=== PATIENT | female | born 1955 | race Caucasian/White ===

== ENCOUNTER 2016-09-04 11:57 | Emergency (ER) | payer OTHER | END 2016-09-04 15:33 | disposition home or self-care (01) | DX: R07.89 Other chest pain (principal); K21.9 Gastro-esophageal reflux disease without esophagitis ==

== ENCOUNTER 2017-01-09 15:43 | Outpatient (CLI) | payer OTHER ==
--- NOTE | 2017-01-09 21:32 | MRI Report ---
EXAM: RIGHT KNEE MRI WITHOUT CONTRAST EXAM DATE: 01/09/2017 05:04 p.m. CLINICAL HISTORY: 61-year-old female status post acute right knee injury on 12/28/2016. COMPARISON: None. TECHNIQUE: Multiplanar, multisequence T1-weighted and fluid-sensitive sequences of the knee without c ontrast. Other: None. FINDINGS: Bones: There is subcortical edema in the intercondylar region of the tibia. There is subchondral katherine ow edema in the medial aspect of the medial femoral and tibial condyle, and the superior margin of th e patella. Articular Cartilage: There is moderate thinning of the hyaline cartilage of the medial and patellofem oral compartments. There is mild lateral compartment thinning. Medial Meniscus: There is a full-thickness radial tear of the posterior root attachment with medial e xtrusion Lateral Meniscus: The lateral meniscus is intact. Cruciate Ligaments: The anterior and posterior cruciate ligaments are intact. Collateral Ligaments: The medial collateral and lateral collateral ligamentous structures are intact. Tendons: The quadriceps, patellar, semimembranosus, and popliteus tendons are unremarkable. Musculature: No edema or fatty atrophy. Other: There is a moderate-sized joint effusion with a Paz's cyst. There is extensive subcutaneous edema particularly over the anterior aspect of the joint. No loose bodies. The medial and lateral re tinacula are intact. . IMPRESSION: 1. Radial tear of the medial meniscus with medial extrusion. 2. Moderate medial and patellofemoral osteoarthritis. 3. Joint effusion with a Paz's cyst. [facility] MUSCULOSKELETAL RADIOLOGY SECTION Referring Provider Line: [phone] SITE ID: [id number]
== END 2017-01-09 15:44 | disposition home or self-care (01) ==
LOC: DI 15:43
PROVIDERS: ATTEND Family Medicine
DX: S83.241A Other tear of medial meniscus, current injury, right knee, initial encounter (principal); M17.11 Unilateral primary osteoarthritis, right knee; M25.461 Effusion, right knee; M71.21 Synovial cyst of popliteal space [Baker], right knee

== ENCOUNTER 2017-04-05 10:52 | Outpatient (CLI) | payer OTHER | END 2017-04-05 10:53 | disposition critical access hospital (66) | LOC: EMS 10:52 | PROVIDERS: ATTEND Surgery | DX: R06.02 Shortness of breath (principal); R42 Dizziness and giddiness | CPT/HCPCS: A0425; A0429 ==

== ENCOUNTER 2017-04-05 11:06 | Emergency (ER) | payer OTHER ==
--- NOTE | 2017-04-05 11:22 | ED Physician Documentation ---
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 She did not have syncope. Review of Systems Constitutional: reports: Myalgias, Fatigue. denies: Fever Eyes: denies: Decreased vision Ears: denies: Ear pain Nose: reports: Rhinorrhea / runny nose, Congestion Throat: denies: Sore throat Cardiac: denies: Chest pain / pressure, Palpitations Respiratory: reports: Dyspnea, Cough GI: denies: Abdominal Pain, Nausea, Vomiting : denies: Dysuria, Frequency Skin: denies: Rash Musculoskeletal: denies: Neck pain, Back pain, Extremity pain Neurologic: reports: Generalized weakness, Near syncope. denies: Focal weakness , Numbness, Headache, Head injury, LOC PD PAST MEDICAL HISTORY - Past Medical History Past Medical History: No Cardiovascular: None Respiratory: None Endocrine/Autoimmune: None GI: Hiatal hernia - Past Surgical History Past Surgical History: No - Present Medications Home Medications: Ambulatory Orders Medication Instructions Recorded Confirmed Azithromycin [Zithromax] 250 mg PO DAILY #6 tablet 04/05/17 - Allergies Allergies/Adverse Reactions: Allergies Allergy/AdvReac Type Severity Reaction Status Date / Time No Known Drug Allergies Allergy Verified 02/19/14 15:16 - Social History Does the pt smoke?: No Smoking Status: Never smoker Does the pt drink ETOH?: No Does the pt have substance abuse?: No PD ED PE NORMAL - Vitals Vital signs reviewed: Yes (Hypertensive) - General General: No acute distress, Well developed/nourished - HEENT HEENT: Atraumatic, PERRL, EOMI, Other - Neck Neck: Supple, no meningeal sign (There is erythema to the right middle ear and the left is without erythema but with tympanosclerosis.), No bony TTP - Cardiac Cardiac: RRR, No murmur - Respiratory Respiratory: No respiratory distress, Other (Loud reproducible rhonchi in the left base.) - Abdomen Abdomen: Soft, Non tender - Back Back: No CVA TTP, No spinal TTP - Derm Derm: Normal color, Warm and dry, No rash - Extremities Extremities: No deformity, No edema - Neuro Neuro: Alert and oriented X 3, No motor deficit, No sensory deficit, Normal speech - Psych Psych: Normal mood, Normal affect Results - Vitals Vitals: Vital Signs - 24 hr 04/05/17 04/05/17 11:08 11:39 Temperature 36.5 C Heart Rate 72 66 Respiratory 18 20 Rate Blood Pressure 123/82 H 112/62 O2 Saturation 98 98 Oxygen O2 Source Room air - EKG (time done) 1128 Rate: Rate (enter#) (68) Ischemia: Non specific changes Compare to prior EKG: Changed from prior EKG (SPT 09-04-16 the T waves have flattened laterally) Computer interpretation: Agree with computer - Labs Labs: Laboratory Tests 04/05/17 04/05/17 04/05/17 11:15 11:15 11:15 WBC 7.7 RBC 4.66 Hgb 12.3 Hct 37.7 MCV 80.9 L MCH 26.3 L MCHC 32.5 RDW 14.3 Plt Count 257 MPV 7.3 L Neut # 5.7 Lymph # 1.1 L [place] # 0.6 Eos # 0.2 Baso # 0.1 Absolute Nucleated RBC 0.00 Nucleated RBCs 0.0 Sodium 137 Potassium 4.2 Chloride 105 Carbon Dioxide 24 Anion Gap 8.0 BUN 18 Creatinine 0.9 Estimated GFR (MDRD) 64 L Glucose 113 H Calcium 9.1 Total Bilirubin 0.3 AST 28 ALT 16 Alkaline Phosphatase 43 Troponin I < 0.04 Total Protein 6.5 L Albumin 3.5 Globulin 3.0 Albumin/Globulin Ratio 1.2 Lipase 32 Urine Color Urine Clarity Urine pH Ur Specific Bivins Urine Protein Urine Glucose (UA) Urine Ketones Urine Occult Blood Urine Nitrite Urine Bilirubin Urine Urobilinogen Ur Leukocyte Esterase Urine RBC Urine WBC Ur Squamous Epith Cells Urine Bacteria Urine Casts Urine Mucus Ur Microscopic Review Urine Culture Comments 04/05/17 12:00 WBC RBC Hgb Hct MCV MCH MCHC RDW Plt Count MPV Neut # Lymph # Hocking # Eos # Baso # Absolute Nucleated RBC Nucleated RBCs Sodium Potassium Chloride Carbon Dioxide Anion Gap BUN Creatinine Estimated GFR (MDRD) Glucose Calcium Total Bilirubin AST ALT Alkaline Phosphatase Troponin I Total Protein Albumin Globulin Albumin/Globulin Ratio Lipase Urine Color YELLOW Urine Clarity CLEAR Urine pH 6.0 Ur Specific Bivins 1.025 Urine Protein 100 H Urine Glucose (UA) NEGATIVE Urine Ketones NEGATIVE Urine Occult Blood NEGATIVE Urine Nitrite NEGATIVE Urine Bilirubin NEGATIVE Urine Urobilinogen 0.2 (NORMAL) Ur Leukocyte Esterase NEGATIVE Urine RBC 0-5 Urine WBC 0-3 Ur Squamous Epith Cells FEW Squamous Urine Bacteria Few Urine Casts 0-2 Hyaline Casts Urine Mucus Few Strands Ur Microscopic Review INDICATED Urine Culture Comments NOT INDICATED Procedures - IVC sono (time) 1117 Bedside IVC sono: IVC measures (cm) (1.62), Euvolemia PD MEDICAL DECISION MAKING - ED course Complexity details: reviewed old records, reviewed results, re-evaluated patient , considered differential, d/w patient, d/w family ED course: 61-year-old female with a cough for the past 3 weeks has developed near syncope today. She is come to the emergency department and on examination she does appear to have right otitis media she does have rhonchi in the left base and on her plain film she appears to have a hiatal hernia in the left side. She is treated for otitis with dexamethasone and Rocephin here in the emergency department and we will start her on some azithromycin. Departure - Departure Disposition: 01 Home, Self Care Clinical Impression: Near syncope Otitis media Qualifiers: Otitis media type: suppurative Chronicity: acute Laterality: right Recurrence: not specified as recurrent Spontaneous tympanic membrane rupture: without spontaneous rupture Qualified Code(s): H66.001 - Acute suppurative otitis media without spontaneous rupture of ear drum, right ear Condition: Stable Instructions: ED Otitis Media Acute Adult Follow-Up: JULIA GILL [Primary Care Provider] - Prescriptions: Azithromycin [Zithromax] 250 mg PO DAILY #6 tablet
[2017-04-05 11:34] LABS: BASOPHILS # (AUTO) 0.1 10^3/uL (0.0-0.1); BASOPHILS % (AUTO) 0.9 %; EOSINOPHILS # (AUTO) 0.2 10^3/uL (0.0-0.7); EOSINOPHILS % (AUTO) 3.2 %; HCT - HEMATOCRIT 37.7 % (37.0-47.0); HGB - HEMOGLOBIN 12.3 g/dL (12.0-16.0); LYMPHOCYTES # (AUTO) 1.1 10^3/uL (1.5-3.5); LYMPHOCYTES % (AUTO) 13.9 %; MEAN CORPUSCULAR HEMOGLOBIN 26.3 pg (27.0-31.0); MEAN CORPUSCULAR HGB CONC 32.5 g/dL (32.0-36.0); MEAN CORPUSCULAR VOLUME 80.9 fL (81.0-99.0); MEAN PLATELET VOLUME 7.3 fL (7.9-10.8); MONOCYTES # (AUTO) 0.6 10^3/uL (0.0-1.0); MONOCYTES % (AUTO) 7.5 %; NEUTROPHILS # (AUTO) 5.7 10^3/uL (1.5-6.6); NEUTROPHILS % (AUTO) 74.5 %; RED BLOOD COUNT 4.66 10^6/uL (4.20-5.40); RED CELL DISTRIBUTION WIDTH 14.3 % (12.0-15.0); UNCORRECTED WHITE BLOOD COUNT 7.7 x10^3/uL; WHITE BLOOD COUNT 7.7 x10^3/uL (4.8-10.8)
[2017-04-05 11:51] LABS: ALBUMIN/GLOBULIN RATIO 1.2 (1.0-2.2); BILIRUBIN,TOTAL 0.3 mg/dL (0.2-1.0); CALCIUM 9.1 mg/dL (8.5-10.3); CREATININE 0.9 mg/dL (0.4-1.0); POTASSIUM 4.2 mmol/L (3.5-5.0); TOTAL PROTEIN 6.5 g/dL (6.7-8.2)
--- NOTE | 2017-04-05 12:09 | XRAY Preliminary Report ---
Exam: XR Chest 2 View PA/LAT IMPRESSION: 1. No acute abnormality of the chest. 2. Moderate-sized hiatal hernia. [facility] SITE ID: [id number]
--- NOTE | 2017-04-05 12:11 | XRAY Report ---
EXAM: CHEST RADIOGRAPHY EXAM DATE: 04/05/2017 12:01 PM. CLINICAL HISTORY: Left base rhonchi. COMPARISON: 1 view 12/23/2007. TECHNIQUE: 2 views. FINDINGS: Lungs/Pleura: No focal opacities evident. No pleural effusion. No pneumothorax. Normal volumes. Patte rn compatible with focal right hemidiaphragm eventration is without significant change. Mediastinum: Normal heart size. Moderate-sized hiatal hernia demonstrated. Other: None. IMPRESSION: 1. No acute abnormality of the chest. 2. Moderate-sized hiatal hernia. [facility] Referring Provider Line: [phone] SITE ID: [id number]
[2017-04-05 12:15] LABS: BILIRUBIN,URINE NEGATIVE (NEGATIVE)
[2017-04-05 12:16] LABS: UA w/ MICROSCOPIC CHARGE YES
[2017-04-05 12:24] LABS: UR CULTURE IF IND NOT INDICATED; WBC,URINE 0-3 /HPF (0-5)
[2017-04-05] MEDS ORDERED: cefTRIAXone 1 GM in SODIUM CHLORIDE 0.9% MINIBAG 100 ML IV STA (12:28)
[2017-04-05] MEDS ORDERED: DEXAMETHASONE 10 MG/ML VIAL IVP STA (12:28)
[2017-04-05] MEDS ORDERED: cefTRIAXone 1 GM VIAL ONE (12:39)
[2017-04-05] MEDS ORDERED: DEXAMETHASONE 10 MG/ML VIAL ONE (12:39)
[2017-04-05] MEDS ORDERED: SODIUM CHLORIDE FLUSH 0.9% 10 ML SYRINGE IVP ONE (12:43)
[2017-04-05 13:09] VITALS: BP 108/62
== END 2017-04-05 13:18 | disposition home or self-care (01) ==
LOC: EDUNIT# → ED 11:06
DX: R55 Syncope and collapse (principal); H66.001 Acute suppurative otitis media without spontaneous rupture of ear drum, right ear; K44.9 Diaphragmatic hernia without obstruction or gangrene
CPT/HCPCS: 36415; 71020; 80053; 81001; 81003; 83690; 84484; 85025; 87086; 93005; 96365; 96375; 99284

== ENCOUNTER 2018-03-08 13:04 | Observation (INO) | payer OTHER ==
[2018-03-08 13:35] LABS: BASOPHILS % (AUTO) 0.8 %; EOSINOPHILS # (AUTO) 0.1 10^3/uL (0.0-0.7); EOSINOPHILS % (AUTO) 1.5 %; LYMPHOCYTES # (AUTO) 0.7 10^3/uL (1.5-3.5); LYMPHOCYTES % (AUTO) 15.8 %; MEAN CORPUSCULAR HEMOGLOBIN 18.6 pg (27.0-31.0); MEAN CORPUSCULAR HGB CONC 29.4 g/dL (32.0-36.0); MEAN CORPUSCULAR VOLUME 63.5 fL (81.0-99.0); MEAN PLATELET VOLUME 7.1 fL (7.9-10.8); MONOCYTES # (AUTO) 0.2 10^3/uL (0.0-1.0); MONOCYTES % (AUTO) 5.3 %; NEUTROPHILS # (AUTO) 3.5 10^3/uL (1.5-6.6); NEUTROPHILS % (AUTO) 76.6 %; PLT - PLATELET COUNT 223 10^3/uL (130-450); RED BLOOD COUNT 3.06 10^6/uL (4.20-5.40); RED CELL DISTRIBUTION WIDTH 18.8 % (12.0-15.0); WHITE BLOOD COUNT 4.6 x10^3/uL (4.8-10.8)
[2018-03-08 13:38] LABS: HGB - HEMOGLOBIN 5.7 g/dL (12.0-16.0)
--- NOTE | 2018-03-08 13:38 | ED Physician Documentation ---
PD HPI DYSPNEA - Stated complaint Stated Complaint: SOA/DIZZY/NUMBNESS IN LT ARM - Chief complaint Chief Complaint: Cardiac - History obtained from History obtained from: Patient - History of Present Illness Timing - onset: Other (This is a 62-year-old woman with history of unexplained anemia since she was 17. She is never been transfused for it and has been on iron in the past. Up to twice daily but currently taking daily. She is had a colonoscopy in the past, negative for her, never an upper endoscopy. Starting over the last 3 days she has been more short of breath especially with exertion and today she got quite dizzy when she stood up suddenly with left arm tingling but no chest pain.) Review of Systems Constitutional: reports: Fatigue. denies: Fever, Chills Nose: denies: Rhinorrhea / runny nose, Congestion Throat: denies: Sore throat Respiratory: denies: Dyspnea, Cough GI: denies: Abdominal Pain, Nausea, Vomiting, Bloody / black stool PD PAST MEDICAL HISTORY - Past Medical History Cardiovascular: None Respiratory: None Endocrine/Autoimmune: None GI: Hiatal hernia - Past Surgical History Past Surgical History: No - Present Medications Home Medications: Ambulatory Orders Medication Instructions Recorded Confirmed Azithromycin [Zithromax] 250 mg PO DAILY #6 tablet 04/05/17 - Allergies Allergies/Adverse Reactions: Allergies Allergy/AdvReac Type Severity Reaction Status Date / Time No Known Drug Allergies Allergy Verified 02/19/14 15:16 - Living Situation Living Situation: reports: With spouse/s.o. - Social History Does the pt smoke?: No Smoking Status: Never smoker Does the pt drink ETOH?: No Does the pt have substance abuse?: No - Family History Family history: reports: Non contributory PD ED PE NORMAL - Vitals Vital signs reviewed: Yes - General General: Alert and oriented X 3, No acute distress - HEENT HEENT: PERRL, EOMI - Neck Neck: Supple, no meningeal sign, No bony TTP - Cardiac Cardiac: RRR, Other (3 out of 6 rapidly decrescendo systolic murmur) - Respiratory Respiratory: No respiratory distress, Clear bilaterally - Abdomen Abdomen: Normal bowel sounds, Soft, Non tender - Rectal Rectal: Other (v. dark stool and v guaiac positive) - Back Back: No CVA TTP, No spinal TTP - Derm Derm: Normal color, Warm and dry - Extremities Extremities: Other (He has significant bilateral pitting pedal edema which she says is neck and unchanged from her usual.) - Neuro Neuro: Alert and oriented X 3, Normal speech - Psych Psych: Normal mood, Normal affect Results - Vitals Vitals: Vital Signs - 24 hr 03/08/18 13:11 Temperature 36.6 C Heart Rate 73 Respiratory 18 Rate Blood Pressure 115/83 H O2 Saturation 100 Oxygen O2 Source Room air - EKG (time done) 1314 Rate: Rate (enter#) (70) Rhythm: NSR Issue: Normal Intervals: Normal NH QRS: Normal Ischemia: Normal ST segments Computer interpretation: Agree with computer - Labs Labs: Laboratory Tests 03/08/18 03/08/18 03/08/18 13:20 13:20 13:20 WBC 4.6 L RBC 3.06 L Hgb 5.7 L* Hct 19.4 L* MCV 63.5 L MCH 18.6 L MCHC 29.4 L RDW 18.8 H Plt Count 223 MPV 7.1 L Sodium 133 L Potassium 3.3 L Chloride 101 Carbon Dioxide 23 Anion Gap 9.0 BUN 13 Creatinine 0.8 Estimated GFR (MDRD) 73 L Glucose 147 H Calcium 8.6 Total Bilirubin 0.9 AST 23 ALT 14 Alkaline Phosphatase 44 Troponin I < 0.04 Total Protein 6.5 L Albumin 3.6 Globulin 2.9 Albumin/Globulin Ratio 1.2 Lipase 44 PD MEDICAL DECISION MAKING - ED course ED course: 62-year-old woman with chronic anemia, she had a colonoscopy about 6 years ago without relevant findings. Never an upper endoscopy. She is noted be very anemic today related to the symptoms of presyncope and shortness of breath problem. Also has a new murmur which is likely a flow murmur. Echo ordered. Hemoglobin only 5.7 and blood was readied and guaiac very positive on rectal exam. Spoke with the on-call surgeon, Dr. Mesa who will consult and defers to medicine for admission and the hospitalist was called at 2:18 PM. - Sepsis Event Vital Signs: Vital Signs - 24 hr 03/08/18 13:11 Temperature 36.6 C Heart Rate 73 Respiratory 18 Rate Blood Pressure 115/83 H O2 Saturation 100 Oxygen O2 Source Room air Departure - Departure Disposition: [facility] DC/Xfer Clinical Impression: Gastrointestinal hemorrhage Qualifiers: GI bleed type/associated pathology: melena Qualified Code(s): K92.1 - Melena Condition: Serious
[2018-03-08 13:43] LABS: ALBUMIN 3.6 g/dL (3.2-5.5); ALBUMIN/GLOBULIN RATIO 1.2 (1.0-2.2); BILIRUBIN,TOTAL 0.9 mg/dL (0.2-1.0); CALCIUM 8.6 mg/dL (8.5-10.3); CREATININE 0.8 mg/dL (0.4-1.0); TOTAL PROTEIN 6.5 g/dL (6.7-8.2)
--- NOTE | 2018-03-08 14:12 | XRAY Report ---
Procedure Date: 03/08/2018 Accession Number: [id number] / [id number] Procedure: XR - Chest 1 View X-Ray CPT Code: 24191 FULL RESULT: EXAM: CHEST RADIOGRAPHY EXAM DATE: 03/08/2018 01:53 PM. CLINICAL HISTORY: Dyspnea new murmur. COMPARISON: CHEST 2 VIEW PA/LAT 04/05/2017. TECHNIQUE: 1 view. FINDINGS: Lungs/Pleura: No consolidative process or pulmonary edema. Mediastinum: There is a moderate-sized round retrocardiac density containing gas consistent with a hiatal hernia. There is eventration of the mid right hemidiaphragm. The contour of the AP window or main pulmonary artery appears enlarged. Other: None. IMPRESSION: 1. No acute airspace disease. 2. Prominent contour of main pulmonary artery which could reflect underlying valve or cardiac disease. 3. Moderate-sized hiatal hernia. [facility]
[2018-03-08] MEDS ORDERED: PANTOPRAZOLE 40 MG VIAL IVP STA (14:18)
--- NOTE | 2018-03-08 14:38 | HISTORY & PHYSICAL EXAMINATION ---
Chief Complaint - Chief Complaint Chief Complaint: dizziness, shortness of breath History of Present Illness - Admitted From Admitted From:: ED - History Obtained From Records Reviewed: yes History obtained from: chart review, patient Exam Limitations: none - History of Present Illness HPI Comment/Other: Roselia Castro is a 62-year old female with a past medical history of morbid obesity, chronic anemia, pneumonia, seasonal allergies, chronic BLE edema, and a right meniscus tear. The patient came to the ED today with a primary complaint of dizziness, and shortness of breath that began 3 days ago. Today these symptoms accompanied left arm numbness and tingling, so this made her come in. Her , Zafar is at the bedside and supportive. She denies other symptoms such as chest pain, fevers, chills, swollen glands, runny nose, diaphoresis, headaches, nausea, vomiting, changes in bowels, changes in diet, recent weight loss, or a new cough. Labs show a profound decrease in her H/H at 5.7/19.4, a low MCV at 63.5, normal platelets, low sodium at 133, low potassium at 3.3, elevated glucose at 147, negative troponin, low total protein at 6.5, a reduced GFR of 73, and no other lab abnormalities. She is found to be afebrile, with normal VS. She is found to have a heart murmur upon exam, so an echocardiogram was ordered. She is being transfused 2 units of PRBCs. There is no evidence of bleeding, found to have no abnormal bleeding, chronic wounds or petechiae. General surgery, Dr. Avery was contacted in the ED who has seen the patient's in the past, who suggests an admission for blood transfusion and further GI work up to rule out GI as the cause of this anemia. She will be observation with an expected one night of stay. History - Past Medical History Cardiovascular: reports: None Respiratory: reports: Pneumonia Neuro: reports: None Endocrine/Autoimmune: reports: None GI: reports: GERD, Hiatal hernia [employer]: reports: None : reports: Nocturia, Frequency HEENT: reports: Chronic sinusitis, Other (seasonal allergies) Psych: reports: None Musculoskeletal: reports: Other (Right knee meniscus tear, will need surgery some day) Derm: reports: Rosacea MRSA Hx?: No - Past Surgical History General: reports: Colonoscopy (~5 years ago) - Family & Social History Family History: Mother: , Father: , Sister: Alive and Well, Brother: Alive and Well Family History Comment/Other: The patient's parents are ; mother from pancreatic CA in her 70's, father of legionnaire's disease in his 50' s. She has 2 brothers and 2 sisters who are alive and well and the only known disease is one brother with diverticulitis and status post partial bowel ressection. Living arrangement: At home Living Situation: With spouse/s.o. Social History Notes: The patient lives independently in [place] with her of 40 years, Zafar, who is retired. 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 She stays very active. She has 2 grown boys, and 5 grandchildren. She denies illicit drug use, alcohol use , or tobacco use. She wishes to be a FULL Code. - Substance History Use: Uses substance without health or social issues: NONE Abuse: Recurrent use of substance despite neg consequences: NONE Dependence: Experiences withdrawal or developed tolerances: NONE - POLST Patient has POLST: No POLST Status: Full Code Meds/Allgy - Home Medications Home Medications: Ambulatory Orders Medication Instructions Recorded Confirmed Doxycycline Hyclate 50 mg PO DAILY PRN 03/08/18 03/08/18 Ferrous Sulfate 325 mg PO DAILY 03/08/18 03/08/18 - Allergies Allergies/Adverse Reactions: Allergies Allergy/AdvReac Type Severity Reaction Status Date / Time No Known Drug Allergies Allergy Verified 02/19/14 15:16 Review of Systems - Constitutional Constitutional: reports: Fatigue, Weakness - Ears, Nose & Throat Ears, Nose & Throat: reports: Postnasal drainage - Cardiovascular Cariovascular: reports: Edema, Lightheadedness, Exertional dyspnea, Decr. exercise tolerance, Orthopnea - Respiratory Respiratory: reports: Orthopnea, SOB at rest, SOB with exertion - Gastrointestinal Gastrointestinal: reports: Abdominal distention, Reflux/heartburn - Genitourinary Genitourinary: reports: Frequency, Nocturia - Musculoskeletal Musculoskeletal: reports: Joint swelling - Integumentary Integumentary: reports: Dryness - Neurological Neurological: reports: Dizziness, Numbness (left arm) - Hematologic/Lymphatic Hematologic/Lymphatic: reports: Anemia - All Other Systems All Other Systems: reports: Reviewed and negative Exam - Vital Signs Reviewed Vital Signs: Yes Vital Signs: Vital Signs x48h Temp Pulse Resp BP Pulse Ox 03/08/18 14:15 78 20 144/57 H 100 03/08/18 13:11 36.6 C 73 18 115/83 H 100 - Physical Exam General Appearance: positive: No acute distress, Alert Eyes Bilateral: positive: Normal inspection, PERRL ENT: positive: ENT inspection nml, Pharynx nml, No signs of dehydration Neck: positive: Nml inspection, Thyroid nml, No JVD, Trachea midline Respiratory: positive: Chest non-tender, No respiratory distress, Breath sounds nml Cardiovascular: positive: Regular rate & rhythm, Systolic murmur, Decreased pulse(s) Peripheral Pulses: positive: 1+ Abdomen: positive: Non-tender, Nml bowel sounds, Other (obese, soft) Back: positive: Nml inspection Skin: positive: No rash, Warm, Dry, Other (pale) Extremities: positive: Non-tender, Full ROM, Pedal edema (chronic BLE edema, pitting.), Joint swelling Neurologic/Psychiatric: positive: Oriented x3, CN's nml (2-12), Motor nml, Sensation nml, Mood/affect nml Reflexes: Bicep (R): 3+, Bicep (L): 3+, Ankle (R): 3+, Ankle (L): 3+ Conclusion/Plan - Problem List (1) Severe anemia Conclusion/Plan: Upon arrival to the ED the patient is found to have a hemoglobin of 5.7 and a hematocrit of 19.4. She also complained of dizziness, shortness of breath and left arm tingling. She will be initially transfused with 2 units, and an additional 2 units on hold. General surgery was consulted who will likely have her begin the bowel prep with colonoscopy in the AM. Plan: continue blood transfusion, and watch for signs of worsening. (2) Gastroesophageal reflux disease Conclusion/Plan: The patient believes that she has a history of a hiatal hernia, and admits to almost daily GERD symptoms of which she takes over the counter TUMS if needed. Plan: Continue to monitor and start a PPI. Qualifiers: Esophagitis presence: esophagitis presence not specified Qualified Code(s) : K21.9 - Gastro-esophageal reflux disease without esophagitis (3) Murmur, cardiac Conclusion/Plan: The patient denies a prior history of a heart murmur, and this was first heard in the ED. An echocardiogram was ordered. This could be caused by low intra- vascular fluid, or pathologic. Plan: Continue to replace blood, and await echo results. (4) Morbid obesity Conclusion/Plan: The patient admits to a non-sedentary life style, so this obesity is likely due to excess calories. She denies a history of DM. Her BMI is 42.2 upon admission. Plan: Encourage weight management that will need to be ordered by her PCP upon discharge. - Lab Results Lab results reviewed: Yes Fish Bones: 03/09/18 05:46 03/09/18 05:46 - Diagnostic Imaging Results Diagnostic Imaging Results: positive: Prelim report reviewed, Final report reviewed - EKG Results EKG Interpreted Independently: Yes EKG Comparison: No prior EKG Core Measures - Anticipated LOS I expect patient to be DC'd or transferred within 96 hours.: Yes - DVT/VTE - Prophylaxis VTE/DVT Device ordered at admit?: Yes VTE/DVT Prophylaxis med ordered at admit?: Yes Not Ordered - Medical Reason: Contraindicated - Stroke - Rehab Assessment Rehab services assessment to be ordered?: No Not Ordered - Medical Reason: Contraindicated - AMI - Statin at Admit Aspirin Prescribed on Admit: No Not Ordered - Medical Reason: Contraindicated
[2018-03-08 16:45] LABS: PLATELET ESTIMATE, MANUAL NORMAL (130-450,000) (NORMAL); PLATELET MORPHOLOGY NORMAL APPEARANCE (NORMAL)
[2018-03-08] MEDS: SODIUM CHLORIDE FLUSH 0.9% 10 ML SYRINGE IVP SCH (17:12)
[2018-03-08 20:05] LABS: % IRON SATURATION 4 % (20-50); IRON 17 ug/dL (28-170); TOTAL IRON BINDING CAPACITY 434 ug/dL (250-450); TRANSFERRIN 310 mg/dL (192-382)
--- NOTE | 2018-03-09 00:45 | CONSULTATION NOTE ---
Referring Provider Name of Referring Provider:: Dr. Bright Daniel Consult Date: 03/08/18 Chief Complaint - Chief Complaint Chief Complaint: Acute on chronic anemia History of Present Illness - Admitted From Admitted From:: [facility] ED - History Obtained From Records Reviewed: Yes History obtained from: Patient and Dr. Daniel Exam Limitations: None - History of Present Illness HPI Comment/Other: This very pleasant 62-year-old female is evaluated in room 7 at [facility]'s emergency department at the request of Dr. Daniel. Dr. Daniel called me for an acute exacerbation of the patient's long-standing anemia. The patient states that she has been anemic ever since the age of 17. 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 She states that this is a result of being seen at [facility]. Additionally, and importantly, her last colonoscopy was approximately 5 years ago and was reportedly normal. She has been on long-standing iron and states that her stool was dark. She did not notice any difference. When she felt lightheaded is when she noted a problem. Of note, I know her as I have operated on him. 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 While I was talking to her she was feeling phone calls trying to get coverage at the [employer]. She denies any hematemesis or hematuria. Despite which he stated to Dr. Daniel , she has been taking chronic nonsteroidal anti-inflammatory drugs (Advil) for [id number] irritation in her knee. She has been told that she is too young to have a knee replacement yet. 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 She has 2 brothers and 2 sisters who are alive and well and the only known disease is one brother with diverticulitis and status post partial bowel ressection. Living arrangement: At home Living Situation: With spouse/s.o. Social History Notes: The patient lives independently in [place] with her of 40 years, Zafar, who is retired. 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 She stays very active. She has 2 grown boys, and 5 grandchildren. She denies illicit drug use, alcohol use , or tobacco use. She wishes to be a FULL Code. - Substance History Use: Uses substance without health or social issues: NONE Abuse: Recurrent use of substance despite neg consequences: NONE Dependence: Experiences withdrawal or developed tolerances: NONE - POLST Patient has POLST: No POLST Status: Full Code Meds/Allgy - Home Medications Home Medications: Ambulatory Orders Medication Instructions Recorded Confirmed Doxycycline Hyclate 50 mg PO DAILY PRN 03/08/18 03/08/18 Ferrous Sulfate 325 mg PO DAILY 03/08/18 03/08/18 - Allergies Allergies/Adverse Reactions: Allergies Allergy/AdvReac Type Severity Reaction Status Date / Time No Known Drug Allergies Allergy Verified 02/19/14 15:16 Review of Systems - Constitutional Constitutional: reports: Fatigue, Weakness - Eyes Eyes: denies: Pain - Ears, Nose & Throat Ears, Nose & Throat: denies: Ear pain - Cardiovascular Cariovascular: reports: Lightheadedness. denies: Irregular heart rate, Palpitations, Chest pain - Respiratory Respiratory: denies: Cough - Gastrointestinal Gastrointestinal: reports: Black stools. denies: Abdominal pain, Abdominal distention, Nausea, Vomiting, Trino blood emesis - Genitourinary Genitourinary: denies: Dysuria, Hematuria - Integumentary Integumentary: denies: Rash - Neurological Neurological: denies: Focal weakness - Psychiatric Psychiatric: denies: Depression, Anxiety - Hematologic/Lymphatic Hematologic/Lymphatic: reports: Anemia (Chronic and to my knowledge incompletely worked up.) Exam - Vital Signs Reviewed Vital Signs: Yes Vital Signs: Vital Signs x48h Temp Pulse Pulse Resp BP BP Pulse Ox 03/08/18 22:25 37.2 C 56 L 17 136/69 H 03/08/18 22:19 36.8 C 55 L 18 139/52 H 03/08/18 22:14 37.2 C 55 L 16 136/62 H 03/08/18 21:36 37.1 C 60 18 144/68 H 03/08/18 20:04 37.1 C 55 L 20 127/59 L 100 03/08/18 19:15 37.1 C 56 L 18 130/54 L 03/08/18 19:05 37.3 C 58 L 18 141/66 H 03/08/18 18:55 37.3 C 55 L 18 130/66 03/08/18 18:25 37.1 C 60 20 124/62 - Physical Exam General Appearance: positive: No acute distress Eyes Bilateral: positive: No lid inflammation, Conjunctivae nml, No scleral icterus ENT: positive: No signs of dehydration Neck: positive: Trachea midline Respiratory: positive: Chest non-tender Cardiovascular: positive: Regular rate & rhythm Abdomen: positive: Non-tender, No organomegaly, Nml bowel sounds, No distention. negative: Guarding, Rebound, Hepatomegaly, Splenomegaly, Mass Skin: positive: Pallor (Relative and not too severe.) Extremities: positive: Non-tender, Nml appearance Neurologic/Psychiatric: positive: Oriented x3 Conclusion/Plan - Diagnosis Diagnosis: Acute on chronic anemia in a 62-year-old female taking NSAIDs - Plan Plan: Protect her gastric mucosa with IV proton pump inhibitors. Transfuse her for symptomatic relief (at least a hemoglobin of 8). EGD late tomorrow afternoon to confirm the stomach or duodenum as the site of bleeding. The patient has been instructed that if she is to take nonsteroidal anti- inflammatory drugs in the future that she needs to protect her stomach with a proton pump inhibitor +/- Carafate. Approximately 45 minutes of [id number] time was spent with the patient with majority spent in discussion, coordination of her care, and completion of the requisite paperwork Fermní disclaimer: This document was created in part using voice recognition technology. Because of the inherent limitations of the system ([employer]'s [employer] user manual states that the licensee understands that speech recognition is a statistical process and that recognition errors are inherent in the process), occasional same sounding word substitutions and grammatical errors do occur and persist despite proofreading. Please read this document for context. - Lab Results Lab results reviewed: Yes Fish Bones: 03/08/18 13:20 03/08/18 13:20
[2018-03-09] MEDS: SODIUM CHLORIDE FLUSH 0.9% 10 ML SYRINGE IVP SCH ×3 (05:33→16:55)
[2018-03-09 06:01] LABS: EOSINOPHILS # (AUTO) 0.1 10^3/uL (0.0-0.7); EOSINOPHILS % (AUTO) 1.7 %; LYMPHOCYTES # (AUTO) 0.9 10^3/uL (1.5-3.5); LYMPHOCYTES % (AUTO) 23.1 %; MEAN CORPUSCULAR HEMOGLOBIN 22.2 pg (27.0-31.0); MEAN CORPUSCULAR HGB CONC 30.9 g/dL (32.0-36.0); MEAN CORPUSCULAR VOLUME 71.9 fL (81.0-99.0); MEAN PLATELET VOLUME 7.5 fL (7.9-10.8); MONOCYTES # (AUTO) 0.3 10^3/uL (0.0-1.0); NEUTROPHILS # (AUTO) 2.7 10^3/uL (1.5-6.6); NEUTROPHILS % (AUTO) 67.2 %; PLT - PLATELET COUNT 196 10^3/uL (130-450); RED BLOOD COUNT 4.04 10^6/uL (4.20-5.40); RED CELL DISTRIBUTION WIDTH 24.8 % (12.0-15.0); WHITE BLOOD COUNT 4.1 x10^3/uL (4.8-10.8)
[2018-03-09 06:07] LABS: ALBUMIN 3.6 g/dL (3.2-5.5); ALBUMIN/GLOBULIN RATIO 1.4 (1.0-2.2); BILIRUBIN,TOTAL 1.7 mg/dL (0.2-1.0); CALCIUM 8.8 mg/dL (8.5-10.3); CREATININE 0.8 mg/dL (0.4-1.0); TOTAL PROTEIN 6.2 g/dL (6.7-8.2)
[2018-03-09] MEDS: PANTOPRAZOLE 40 MG VIAL IVP SCH (06:24)
[2018-03-09] MEDS: SODIUM CHLORIDE FLUSH 0.9% 10 ML SYRINGE IVP PRN ×2 (06:24→08:42)
[2018-03-09 07:09] LABS: PLATELET ESTIMATE, MANUAL NORMAL (130-450,000) (NORMAL)
[2018-03-09 07:46] LABS: HEMOGLOBIN A1C 0.37 g/dL; HEMOGLOBIN A1C % 5.9 % (4.6-6.2)
[2018-03-09] MEDS: POLYETHYLENE GLYCOL 3350 17 GM PACKET PO SCH (08:43)
--- NOTE | 2018-03-09 11:53 | ANESTHESIA ---
Pre-Anesthesia VS, & Labs - Diagnosis Diagnosis Acute on chronic anemia in a 62-year-old female taking NSAIDs - Procedure EGD Vital Signs: Temp Pulse Resp BP Pulse Ox 36.6 C 57 L 16 150/60 H 99 03/09/18 07:43 03/09/18 07:43 03/09/18 07:43 03/09/18 07:43 03/09/18 07:43 Height 5 ft 8 in Weight (kg) 126 kg Body Mass Index 41.8 - NPO >8 hours - Is Patient ?: No - Lab Results Lab results reviewed: No Fish Bones: 03/09/18 05:46 03/09/18 05:46 Home Medications and Allergies Home Medications: Ambulatory Orders Medication Instructions Recorded Confirmed Ferrous Sulfate 325 mg PO DAILY 03/08/18 03/09/18 Multivitamin [Theragran] 1 tab PO DAILY 03/09/18 03/09/18 Allergies/Adverse Reactions: Allergies Allergy/AdvReac Type Severity Reaction Status Date / Time No Known Drug Allergies Allergy Verified 02/19/14 15:16 Anes History & Medical History - Anesthetic History Anesthesia Complications: reports: No previous complications Family history of Anesthesia Complications: Denies Family history of Malignant Hyperthermia: Denies - Medical History Cardiovascular: reports: None Pulmonary: reports: Pneumonia Gastrointestinal: reports: GERD, Hiatal hernia Urinary: reports: Nocturia, Frequency Neuro: reports: None Musculoskeletal: reports: Other (Right knee meniscus tear, will need surgery some day) Endocrine/Autoimmune: reports: None Blood Disorders: reports: Anemia Skin: reports: Rosacea Smoking Status: Never smoker - Surgical History General: Colonoscopy (~5 years ago) Gynecologic: Other (Diagnostic Laparoscopy) Results - EKG Results EKG Comparison: Reviewed EKG, Normal EKG Exam General: Alert, Oriented x3, Cooperative, No acute distress Dental: WNL Mouth Openin Fingerbreadth Neck Mobility: Normal Mallampati classification: III Thyromental Distance: less than 4 cm Respiratory: Lungs clear, Normal breath sounds, No respiratory distress, No accessory muscle use Cardiovascular: Regular rate, Normal S1, Normal S2, No murmurs Mental/Cognitive Status: Alert/Oriented X3, Normal for patient Cognitive Status: Within normal limits Plan Anesthesia Type: MAC Consent for Procedure(s) Verified and Reviewed: Yes Code Status: Attempt Resuscitation ASA classification: 2-Mild systemic disease Is this case an emergency?: No
--- NOTE | 2018-03-09 13:30 | Discharge Plan ---
Discharge Plan Disposition: 01 Home, Self Care Condition: Good Prescriptions: Ferrous Gluconate 324 mg PO BID #60 tablet Pantoprazole Sodium 40 mg PO BID #60 tablet. Sucralfate [Carafate] 1 gm PO QID #120 ml Diet: Regular Activity Restrictions: No Restrictions Shower Restrictions: No Driving Restrictions: No Weight Bearing: Full Weight Additional Instructions or Follow Up instructions: You came to the ED for dizziness that became worse and left arm numbness and tingling. You were found to be very anemic, and were given 4 units of blood product. You underwent a colonoscopy/EGD and found to have gastric ulcers, samples were sent for further testing. You should take 2 medications to ensure that these will heal; carafate and a PPI (protonix). Iron studies were checked and you were found to have iron deficiency anemia, so you should take an iron supplement for at least one month. You had an echocardiogram and preliminary results show pulmonary hypertension likely due to your long standing suspected sleep apnea. You need an URGENT sleep study as you stopped breathing during your procedure due to airway clearance. Please see your PCP within one week or sooner. No Smoking: If you smoke, Please STOP! Call for help. Follow-up with: JULIA GILL [Primary Care Provider] -
--- NOTE | 2018-03-09 13:45 | DISCHARGE SUMMARY ---
Discharge Summary Admit Date: 03/08/18 Discharge Date: 03/10/18 Discharging Provider: GUNJAN Beckwith Primary Care Provider: Elijah Mercer Code Status: Attempt Resuscitation Condition at Discharge: Good Discharge Disposition: 01 Home, Self Care - DIAGNOSES Admission Diagnoses: Severe anemia (D64.9) Murmur (R01.1) Discharge Diagnoses with Status of Each Condition: Iron deficiency anemia (D50.9) new on this admission, 4 units of blood given, stable. Continued on iron supplement. GERD (gastroesophageal reflux disease) (K21.9) chronic, stable. Morbid obesity (E66.01) chronic, stable. Gastric peptic ulcer (K25.9) new on this admit, medications to continue. Leg edema (R60.0) chronic, stable. Obstructive apnea (G47.33) new on this admit, needs prompt follow up. Pulmonary hypertension (I27.20) new on this admit, stable. Murmur (R01.1) stable. - HPI History of Present Illness: Roselia Castro is a 62-year old female with a past medical history of morbid obesity, chronic anemia, pneumonia, seasonal allergies, chronic BLE edema, and a right meniscus tear. The patient came to the ED today with a primary complaint of dizziness, and shortness of breath that began 3 days ago. Today these symptoms accompanied left arm numbness and tingling, so this made her come in. Her , Zafar is at the bedside and supportive. She denies other symptoms such as chest pain, fevers, chills, swollen glands, runny nose, diaphoresis, headaches, nausea, vomiting, changes in bowels, changes in diet, recent weight loss, or a new cough. Labs show a profound decrease in her H/H at 5.7/19.4, a low MCV at 63.5, normal platelets, low sodium at 133, low potassium at 3.3, elevated glucose at 147, negative troponin, low total protein at 6.5, a reduced GFR of 73, and no other lab abnormalities. She is found to be afebrile, with normal VS. She is found to have a heart murmur upon exam, so an echocardiogram was ordered. She is being transfused 2 units of PRBCs. There is no evidence of bleeding, found to have no abnormal bleeding, chronic wounds or petechiae. General surgery, Dr. Avery was contacted in the ED who has seen the patient's in the past, who suggests an admission for blood transfusion and further GI work up to rule out GI as the cause of this anemia. She will be observation with an expected one night of stay. - HOSPITAL COURSE Hospital Course: (1) Severe anemia Upon arrival to the ED the patient is found to have a hemoglobin of 5.7 and a hematocrit of 19.4. She also complained of dizziness, shortness of breath and left arm tingling. H/H is much improved to 9.0/29.1-post blood transfusion. General surgery was consulted and the patient underwent a colonoscopy/EGD and gastric ulcers were found to be the likely cause of her anemia. (2) Gastroesophageal reflux disease The patient believes that she has a history of a hiatal hernia, and admits to almost daily GERD symptoms of which she takes over the counter TUMS if needed. The patient was started on a PPI and carafate as per GI recommendations after finding gastric ulcers. (3) Murmur, cardiac The patient denies a prior history of a heart murmur, and preliminary echo results show a mild prolapse of the posterior mitral valve leaflet. The patient should establish care with a tile trimmer to be referred by her PCP. (4) Morbid obesity The patient admits to a non-sedentary life style, so this obesity is likely due to excess calories. She denies a history of DM. Her BMI is 42.2 upon admission. Encourage weight management that will need to be ordered by her PCP upon discharge. (5) Pulmonary hypertension Preliminary echocardiogram results show increased right heart pressures with an estimated RVSP at rest of 46 mmHg. We suggest a sleep study for suspected MIKALA as the primary cause. Her states that in all the 40 years of marriage, they have slept apart due to the patient's snoring. (6) Apnea As per GI MD, the patient was found to be profoundly hypoxic and had apnea during her case and turned blue. She likely has had this for several years based on her echocardiogram. Disposition: The patient was medically stable and discharged home with a work note. She was encouraged to get prompt follow up with a sleep study. - ALLERGIES Allergies/Adverse Reactions: Allergies Allergy/AdvReac Type Severity Reaction Status Date / Time No Known Drug Allergies Allergy Verified 02/19/14 15:16 - MEDICATIONS Home Medications: Ambulatory Orders Medication Instructions Recorded Confirmed Ferrous Sulfate 325 mg PO DAILY 03/08/18 03/09/18 Multivitamin [Theragran] 1 tab PO DAILY 03/09/18 03/09/18 Ferrous Gluconate 324 mg PO BID #60 tablet 03/10/18 Pantoprazole Sodium 40 mg PO BID #60 tablet. 03/10/18 Sucralfate [Carafate] 1 gm PO QID #120 ml 03/10/18 - PHYSICAL EXAM AT DISCHARGE General Appearance: positive: No acute distress, Alert Eyes Bilateral: positive: Normal inspection, PERRL ENT: positive: ENT inspection nml, Pharynx nml, No signs of dehydration Neck: positive: Nml inspection, Thyroid nml, No JVD, Trachea midline Respiratory: positive: Chest non-tender, No respiratory distress, Breath sounds nml Cardiovascular: positive: Regular rate & rhythm, No gallop, Systolic murmur Peripheral Pulses: positive: 2+ Abdomen: positive: Non-tender, Nml bowel sounds, Other (obese, soft) Back: positive: Nml inspection Skin: positive: No rash, Warm, Dry Extremities: positive: Non-tender, Full ROM, Nml appearance Neurologic/Psychiatric: positive: Oriented x3, CN's nml (2-12), Motor nml, Sensation nml, Mood/affect nml Reflexes: Bicep (R): 3+, Bicep (L): 3+ - LABS Result Diagrams: 03/10/18 05:33 03/10/18 05:33 - DIAGNOSTIC IMAGING Diagnostic Imaging Results: Prelim report reviewed, Final report reviewed Diagnostic Imaging Results Comments: see surgery reports-pathology is pending. - FOLLOW UP Follow Up: Disposition: 01 Home, Self Care Condition: Good Prescriptions: Ferrous Gluconate 324 mg PO BID #60 tablet Pantoprazole Sodium 40 mg PO BID #60 tablet. Sucralfate [Carafate] 1 gm PO QID #120 ml Diet: Regular Activity Restrictions: No Restrictions Shower Restrictions: No Driving Restrictions: No Weight Bearing: Full Weight Additional Instructions or Follow Up instructions: You came to the ED for dizziness that became worse and left arm numbness and tingling. You were found to be very anemic, and were given 4 units of blood product. You underwent a colonoscopy/EGD and found to have gastric ulcers, samples were sent for further testing. You should take 2 medications to ensure that these will heal; carafate and a PPI (protonix). Iron studies were checked and you were found to have iron deficiency anemia, so you should take an iron supplement for at least one month. You had an echocardiogram and preliminary results show pulmonary hypertension likely due to your long standing suspected sleep apnea. You need an URGENT sleep study as you stopped breathing during your procedure due to airway clearance. Please see your PCP within one week or sooner. - TIME SPENT Time Spent in Discharge (Minutes): 45
[2018-03-09] MEDS ORDERED: LIDO GARGLE 30 ML BOTTLE ONE (15:47)
[2018-03-09] MEDS ORDERED: LIDO GARGLE 30 ML BOTTLE PO ONE (15:51)
[2018-03-09] MEDS ORDERED: MIDAZOLAM 2 MG/2 ML VIAL ONE (16:59)
[2018-03-09] MEDS ORDERED: fentaNYL 100 MCG/2 ML VIAL ONE (16:59)
[2018-03-09] MEDS ORDERED: LACTATED RINGERS 1,000 ML IV ONE (17:00)
[2018-03-09] MEDS ORDERED: PROPOFOL 200 MG/20 ML VIAL IVP ONE (18:01)
--- NOTE | 2018-03-09 19:17 | PROVIDER PROGRESS NOTE ---
Subjective - Prog Note Date Prog Note Date: 03/09/18 Prog Note Time: 19:17 - Subjective Pt reports feeling: Improved Subjective: Estephania has no complaints and is awaiting her GI procedures. She has no new symptoms and admit to some improvement since admission in her overall energy levels as she has been transfused with 4 units of blood. Objective - Vital Signs/Intake & Output Reviewed Vital Signs: Yes Vital Signs: Vital Signs x48h Temp Pulse Pulse Resp BP Pulse Ox 03/09/18 18:31 36.9 C 56 L 16 140/63 H 97 03/09/18 18:00 37.2 C 62 14 132/73 H 96 03/09/18 16:30 37.3 C 58 L 16 137/68 H 97 03/09/18 14:10 37 C 56 L 18 142/68 H 100 Intake & Output: Intake & Output 03/06/18 03/07/18 03/08/18 03/09/18 23:59 23:59 23:59 23:59 Intake Total 600 720 Output Total 250 400 Balance 350 320 - Objective General Appearance: positive: No acute distress, Alert, Lethargic Eyes Bilateral: positive: Normal inspection, PERRL Eyes: OU Conjunctivae pale ENT: positive: ENT inspection nml, Pharynx nml, No signs of dehydration Neck: positive: Nml inspection, Thyroid nml, No JVD, Lymphadenopathy (R), Lymphadenopathy (L), Stiff neck Respiratory: positive: Chest non-tender, No respiratory distress, Other ( diminished) Cardiovascular: positive: Regular rate & rhythm, No gallop, Systolic murmur, Decreased pulse(s) Peripheral Pulses: 1+ Radial (R), 1+ Radial (L) Abdomen: positive: Non-tender, Nml bowel sounds, Other (obese, soft) Back: positive: Nml inspection Skin: positive: No rash, Warm, Dry Extremities: positive: Non-tender, Full ROM, Pedal edema (chronic BLE), Joint swelling Neurologic/Psychiatric: positive: Oriented x3, CN's nml (2-12), Motor nml, Sensation nml, Weakness Reflexes: Bicep (R): 3+, Bicep (L): 3+ - Lab Results Fish Bones: 03/10/18 05:33 03/10/18 05:33 Other Labs: Lab Results x24hrs 03/09/18 03/09/18 03/09/18 Range/Units 05:46 05:46 05:46 WBC (4.8-10.8) x10^3/uL RBC (4.20-5.40) 10^6/uL Hgb (12.0-16.0) g/dL Hct (37.0-47.0) % MCV (81.0-99.0) fL MCH (27.0-31.0) pg MCHC (32.0-36.0) g/dL RDW (12.0-15.0) % Plt Count (130-450) 10^3/uL MPV (7.9-10.8) fL Neut # (Auto) (1.5-6.6) 10^3/uL Lymph # (Auto) (1.5-3.5) 10^3/uL [place] # (Auto) (0.0-1.0) 10^3/uL Eos # (Auto) (0.0-0.7) 10^3/uL Baso # (Auto) (0.0-0.1) 10^3/uL Absolute Nucleated RBC x10^3/uL Nucleated RBC % /100WBC Manual Slide Review Platelet Estimate (NORMAL) RBC Morph Micro Appear (NORMAL) Sodium (135-145) mmol/L Potassium (3.5-5.0) mmol/L Chloride (101-111) mmol/L Carbon Dioxide (21-32) mmol/L Anion Gap (6-13) BUN (6-20) mg/dL Creatinine (0.4-1.0) mg/dL Estimated GFR (MDRD) (>89) Glucose (70-100) mg/dL Glycated Hemoglobin (4.6-6.2) % Estim Average Glucose (70-100) Calcium (8.5-10.3) mg/dL Ferritin 2.2 L (11.0-306.8) ng/mL Total Bilirubin (0.2-1.0) mg/dL AST (10-42) IU/L ALT (10-60) IU/L Alkaline Phosphatase (42-121) IU/L Total Protein (6.7-8.2) g/dL Albumin (3.2-5.5) g/dL Globulin (2.1-4.2) g/dL Albumin/Globulin Ratio (1.0-2.2) Vitamin B12 457 (180-914) pg/mL TSH 2.56 (0.34-5.60) uIU/mL 03/09/18 03/09/18 03/09/18 Range/Units 05:46 05:46 05:46 WBC 4.1 L (4.8-10.8) x10^3/uL RBC 4.04 L (4.20-5.40) 10^6/uL Hgb 9.0 L (12.0-16.0) g/dL Hct 29.1 L (37.0-47.0) % MCV 71.9 L (81.0-99.0) fL MCH 22.2 L (27.0-31.0) pg MCHC 30.9 L (32.0-36.0) g/dL RDW 24.8 H (12.0-15.0) % Plt Count 196 (130-450) 10^3/uL MPV 7.5 L (7.9-10.8) fL Neut # (Auto) 2.7 (1.5-6.6) 10^3/uL Lymph # (Auto) 0.9 L (1.5-3.5) 10^3/uL [place] # (Auto) 0.3 (0.0-1.0) 10^3/uL Eos # (Auto) 0.1 (0.0-0.7) 10^3/uL Baso # (Auto) 0.0 (0.0-0.1) 10^3/uL Absolute Nucleated RBC 0.00 x10^3/uL Nucleated RBC % 0.1 /100WBC Manual Slide Review Indicated Platelet Estimate NORMAL (130-450,000) (NORMAL) RBC Morph Micro Appear 1+ POLYCHROMASIA (NORMAL) Sodium 139 (135-145) mmol/L Potassium 3.7 (3.5-5.0) mmol/L Chloride 108 (101-111) mmol/L Carbon Dioxide 24 (21-32) mmol/L Anion Gap 7.0 (6-13) BUN 12 (6-20) mg/dL Creatinine 0.8 (0.4-1.0) mg/dL Estimated GFR (MDRD) 73 L (>89) Glucose 96 (70-100) mg/dL Glycated Hemoglobin 5.9 (4.6-6.2) % Estim Average Glucose 123 H (70-100) Calcium 8.8 (8.5-10.3) mg/dL Ferritin (11.0-306.8) ng/mL Total Bilirubin 1.7 H (0.2-1.0) mg/dL AST 20 (10-42) IU/L ALT 14 (10-60) IU/L Alkaline Phosphatase 43 (42-121) IU/L Total Protein 6.2 L (6.7-8.2) g/dL Albumin 3.6 (3.2-5.5) g/dL Globulin 2.6 (2.1-4.2) g/dL Albumin/Globulin Ratio 1.4 (1.0-2.2) Vitamin B12 (180-914) pg/mL TSH (0.34-5.60) uIU/mL ABX Reporting Has patient been on IV antibiotics over the past 48 hours?: No Assessment/Plan - Problem List (1) Severe anemia Impression: Upon arrival to the ED the patient is found to have a hemoglobin of 5.7 and a hematocrit of 19.4. She also complained of dizziness, shortness of breath and left arm tingling. H/H this morning is much improved to 9.0/29.1. General surgery was consulted and the patient underwent a colonoscopy late today. Plan: Continue to monitor. (2) Gastroesophageal reflux disease Impression: The patient believes that she has a history of a hiatal hernia, and admits to almost daily GERD symptoms of which she takes over the counter TUMS if needed. Plan: Continue to monitor and start a PPI. Qualifiers: Esophagitis presence: esophagitis presence not specified Qualified Code(s) : K21.9 - Gastro-esophageal reflux disease without esophagitis (3) Murmur, cardiac Impression: The patient denies a prior history of a heart murmur, and preliminary echo results show a mild prolapse of the posterior mitral valve leaflet. The patient should establish care with a parking enforcer to be referred by her PCP. Plan: Continue to monitor. (4) Morbid obesity Impression: The patient admits to a non-sedentary life style, so this obesity is likely due to excess calories. She denies a history of DM. Her BMI is 42.2 upon admission. Plan: Encourage weight management that will need to be ordered by her PCP upon discharge. (5) Pulmonary hypertension Impression: Preliminary echocardiogram results show increased right heart pressures with an estimated RVSP at rest of 46 mmHg. We suggest a sleep study for suspected MIKALA as the primary cause. Her states that in all the 40 years of marriage, they have slept apart due to the patient's snoring. Plan: Continue to monitor respiratory status, and advise prompt follow up with PCP.
[2018-03-09] MEDS: SUCRALFATE 1 GM/10 ML UDC PO SCH ×2 (19:51→19:52)
[2018-03-10] MEDS: SODIUM CHLORIDE FLUSH 0.9% 10 ML SYRINGE IVP SCH ×2 (00:50→08:22)
[2018-03-10 05:59] LABS: ALBUMIN 3.3 g/dL (3.2-5.5); ALBUMIN/GLOBULIN RATIO 1.2 (1.0-2.2); BILIRUBIN,TOTAL 1.1 mg/dL (0.2-1.0); CALCIUM 8.7 mg/dL (8.5-10.3); CREATININE 0.7 mg/dL (0.4-1.0); TOTAL PROTEIN 6.1 g/dL (6.7-8.2)
[2018-03-10] MEDS: PANTOPRAZOLE 40 MG VIAL IVP SCH (06:04)
[2018-03-10] MEDS: SODIUM CHLORIDE FLUSH 0.9% 10 ML SYRINGE IVP PRN (06:04)
[2018-03-10] MEDS: SUCRALFATE 1 GM/10 ML UDC PO SCH ×2 (06:04→10:58)
[2018-03-10] MEDS ORDERED: ACETAMINOPHEN 325 MG TABLET PO PRN (06:09)
[2018-03-10 06:48] LABS: BASOPHILS % (AUTO) 0.5 %; EOSINOPHILS # (AUTO) 0.1 10^3/uL (0.0-0.7); EOSINOPHILS % (AUTO) 1.7 %; HGB - HEMOGLOBIN 9.1 g/dL (12.0-16.0); LYMPHOCYTES # (AUTO) 0.7 10^3/uL (1.5-3.5); LYMPHOCYTES % (AUTO) 20.1 %; MEAN CORPUSCULAR HEMOGLOBIN 22.1 pg (27.0-31.0); MEAN CORPUSCULAR HGB CONC 30.8 g/dL (32.0-36.0); MEAN PLATELET VOLUME 7.7 fL (7.9-10.8); MONOCYTES # (AUTO) 0.3 10^3/uL (0.0-1.0); MONOCYTES % (AUTO) 7.5 %; NEUTROPHILS # (AUTO) 2.6 10^3/uL (1.5-6.6); NEUTROPHILS % (AUTO) 70.2 %; PLT - PLATELET COUNT 175 10^3/uL (130-450); RED CELL DISTRIBUTION WIDTH 24.7 % (12.0-15.0); WHITE BLOOD COUNT 3.6 x10^3/uL (4.8-10.8)
[2018-03-10 07:25] LABS: PLATELET ESTIMATE, MANUAL NORMAL (130-450,000) (NORMAL)
[2018-03-10] MEDS: POLYETHYLENE GLYCOL 3350 17 GM PACKET PO SCH (08:22)
--- NOTE | 2018-03-10 08:54 | PROVIDER PROGRESS NOTE ---
Subjective - General Admit Date: 03/08/18 Procedure Date: 03/09/18 Post Op Days: 1 Procedure Performed: EGD with cold biopsies - Review of Systems General: positive: No symptoms, Other (Sore where chin and mandible lift done yesterday during EGD to help patient with her profound sleep apnea.) HEENT: positive: No symptoms Pulmonary: positive: No symptoms Cardiovascular: positive: No symptoms Gastrointestinal: positive: No symptoms Genitourinary: positive: No symptoms, Dysuria Musculoskeletal: positive: No symptoms Skin: positive: No symptoms Psychiatric: positive: No symptoms All Other Systems: positive: Reviewed and negative Objective - Patient Data Reviewed Vital Signs: Yes Vital Signs: Vital Signs x48h Temp Pulse Pulse Resp BP Pulse Ox 03/10/18 07:25 36.5 C 52 L 18 142/71 H 96 03/10/18 06:11 36.8 C 66 16 151/79 H 96 Weight: Weight 03/08/18 03/09/18 03/10/18 23:59 23:59 23:59 Weight (kg) 125 kg 126 kg 124 kg Intake & Output: Intake and Output Totals x24h 03/08/18 03/09/18 03/10/18 23:59 23:59 23:59 Intake Total 600 1220 610 Output Total 250 400 Balance 350 820 610 - Lab Results Lab Results: 03/10/18 05:33 03/10/18 05:33 Other Lab Results: Lab Results x24hrs 03/10/18 03/10/18 03/09/18 Range/Units 05:33 05:33 05:46 WBC 3.6 L (4.8-10.8) x10^3/uL RBC 4.10 L (4.20-5.40) 10^6/uL Hgb 9.1 L (12.0-16.0) g/dL Hct 29.5 L (37.0-47.0) % MCV 72.0 L (81.0-99.0) fL MCH 22.1 L (27.0-31.0) pg MCHC 30.8 L (32.0-36.0) g/dL RDW 24.7 H (12.0-15.0) % Plt Count 175 (130-450) 10^3/uL MPV 7.7 L (7.9-10.8) fL Neut # (Auto) 2.6 (1.5-6.6) 10^3/uL Lymph # (Auto) 0.7 L (1.5-3.5) 10^3/uL [place] # (Auto) 0.3 (0.0-1.0) 10^3/uL Eos # (Auto) 0.1 (0.0-0.7) 10^3/uL Baso # (Auto) 0.0 (0.0-0.1) 10^3/uL Absolute Nucleated RBC 0.00 x10^3/uL Nucleated RBC % 0.0 /100WBC Manual Slide Review Indicated Platelet Estimate NORMAL (130-450,000) (NORMAL) RBC Morph Micro Appear 1+ POLYCHROMASIA (NORMAL) Sodium 136 (135-145) mmol/L Potassium 4.0 (3.5-5.0) mmol/L Chloride 105 (101-111) mmol/L Carbon Dioxide 28 (21-32) mmol/L Anion Gap 3.0 L (6-13) BUN 10 (6-20) mg/dL Creatinine 0.7 (0.4-1.0) mg/dL Estimated GFR (MDRD) 85 L (>89) Glucose 97 (70-100) mg/dL Calcium 8.7 (8.5-10.3) mg/dL Total Bilirubin 1.1 H (0.2-1.0) mg/dL AST 20 (10-42) IU/L ALT 16 (10-60) IU/L Alkaline Phosphatase 41 L (42-121) IU/L Total Protein 6.1 L (6.7-8.2) g/dL Albumin 3.3 (3.2-5.5) g/dL Globulin 2.8 (2.1-4.2) g/dL Albumin/Globulin Ratio 1.2 (1.0-2.2) TSH 2.56 (0.34-5.60) uIU/mL - Current Medications Current Medications: Current Medications Generic Name Dose Route Start Last Admin Trade Name Freq PRN Reason Stop Dose Admin Acetaminophen 650 mg 03/10/18 06:09 03/10/18 07:01 Tylenol PO 650 mg Q4HR PRN Administration Pain or Fever > 38C (100.4F) Docusate Sodium 250 - 500 mg 03/10/18 09:00 03/10/18 08:22 Colace 250mg Capsule PO 250 mg DAILY ABBEY Administration Pantoprazole Sodium 40 mg 03/09/18 07:00 03/10/18 06:04 Protonix IVP 40 mg QDAC ABBEY Administration Polyethylene Glycol 17 gm 03/09/18 09:00 03/10/18 08:22 Miralax PO Not Given DAILY ABBEY Senna 8.6 - 17.2 mg 03/10/18 09:00 03/10/18 08:22 Senokot PO 8.6 mg DAILY ABBEY Administration Sodium Chloride 10 ml 03/08/18 14:36 03/10/18 06:04 Normal Saline Flush 0.9% IVP 10 ml PRN PRN Administration NEEDED PER PROVIDER ORDERS Sodium Chloride 10 ml 03/08/18 17:00 03/10/18 08:22 Normal Saline Flush 0.9% IVP 10 ml 0100,0900,1700 ABBEY Administration Sucralfate 1 gm 03/09/18 20:00 03/10/18 06:04 Carafate PO 1 gm 0700,1100,1600,2200 ABBEY Administration - Physical Exam General Appearance: positive: No acute distress Abdomen: positive: Non-tender, Nml bowel sounds, No distention Impression/Plan - Problem List Problem List: D1 s/p EGD with cold biopsies for HECTOR and pathology that showed a gastric body ulcer which is undoubtedly the cause of her current anemia. Treat with BID PPI and QID Carafate upon discharge from hospital with plan to see me in 4 weeks in office for repeat EGD in 6 weeks. If her HECTOR comes back positive treat the infection. Much more important is her PROFOUND sleep apnea. She cannot protect her airway. In her entire marriage her and her sleep in different rooms due to her "snoring." She is chronically tired. Lack of sleep and her NSAID use probably contributed to her ulcer formation. The reason she was kept overnight was prophylactic in case there was any sedation on board that would have caused her to stop breathing overnight - thankfully this did not occur. I again spoke with the patient this AM and explained the importance of having a sleep study (which I am sure it will be positive) and being placed on CPAP.
[2018-03-10] MEDS ORDERED: SENNA 8.6 MG TABLET PO SCH (09:00)
[2018-03-10] MEDS ORDERED: DOCUSATE SODIUM 250 MG CAPSULE PO SCH (09:00)
[2018-03-10 10:38] VITALS: BP 126/67
== END 2018-03-10 11:09 | disposition home or self-care (01) ==
LOC: ED 13:04 → MS2 14:36
PROVIDERS: ADMIT Nurse Practitioner; ATTEND Nurse Practitioner
PROC: 0DB68ZX Excision of Stomach, Via Natural or Artificial Opening Endoscopic, Diagnostic (ICD-10-PCS; principal; 2018-03-09 16:30)
DX: K25.4 Chronic or unspecified gastric ulcer with hemorrhage (principal); D50.0 Iron deficiency anemia secondary to blood loss (chronic); K21.9 Gastro-esophageal reflux disease without esophagitis; E66.01 Morbid (severe) obesity due to excess calories; Z68.41 Body mass index [BMI] 40.0-44.9, adult; R60.0 Localized edema; G47.33 Obstructive sleep apnea (adult) (pediatric); I27.29 Other secondary pulmonary hypertension; R01.1 Cardiac murmur, unspecified; Z71.3 Dietary counseling and surveillance; K44.9 Diaphragmatic hernia without obstruction or gangrene; R35.1 Nocturia; R35.0 Frequency of micturition; M23.206 Derangement of unspecified meniscus due to old tear or injury, right knee; Z87.01 Personal history of pneumonia (recurrent); Z79.899 Other long term (current) drug therapy
CPT/HCPCS: 36415; 36430; 43239; 71045; 80053; 82607; 82728; 83036; 83540; 83690; 84443; 84466; 84484; 85025; 86850; 86900; 86901; 86920; 87081; 93005; 93306; 96374; 96376; 99283; 99284; A9270; G0378; J7120; P9016

== ENCOUNTER 2019-08-01 17:35 | Emergency (ER) | payer OTHER ==
--- NOTE | 2019-08-01 18:31 | ED Physician Documentation ---
PD HPI ABD PAIN - Stated complaint Stated Complaint: LOWER ABD PAIN, LOW FEVER - Chief complaint Chief Complaint: Abd Pain - History obtained from History obtained from: Patient - History of Present Illness Timing - onset: Today (Pretty healthy 63-year-old woman. She has a history of ulcers, last colonoscopy about 5 years ago and negative per her. Diverticula were not mentioned. She has left-sided abdominal pain that is worse when walking and better when sitting today. No nausea, urinary complaints or changes in bowel movements. She has never had this before.) Review of Systems Ten Systems: 10 systems reviewed and negative Constitutional: reports: Fever, Chills. 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 : Nocturia, Frequency HEENT: Chronic sinusitis, Other (seasonal allergies) Psych: None Musculoskeletal: Other (Right knee meniscus tear, will need surgery some day) Derm: Rosacea - Past Surgical History Past Surgical History: Yes General: Colonoscopy (~5 years ago) /HELP DESK OPERATOR: Other (Diagnostic Laparoscopy) - Present Medications Home Medications: Ambulatory Orders Medication Instructions Recorded Confirmed Ferrous Sulfate 325 mg PO DAILY 03/08/18 03/09/18 Multivitamin [Theragran] 1 tab PO DAILY 03/09/18 03/09/18 Ferrous Gluconate 324 mg PO BID #60 tablet 03/10/18 Pantoprazole Sodium 40 mg PO BID #60 tablet. 03/10/18 Sucralfate [Carafate] 1 gm PO QID #120 ml 03/10/18 Ciprofloxacin HCl [Cipro] 500 mg PO BID #20 tablet 08/01/19 Metronidazole [Flagyl] 500 mg PO TID #30 tablet 08/01/19 - Allergies Allergies/Adverse Reactions: Allergies Allergy/AdvReac Type Severity Reaction Status Date / Time No Known Drug Allergies Allergy Verified 08/01/19 17:49 - Social History Does the pt smoke?: No Smoking Status: Never smoker Does the pt drink ETOH?: No Does the pt have substance abuse?: No - Family History Family history: reports: Other (Brother has diverticula) - Immunizations Immunizations are current?: Yes - POLST Patient has POLST: No POLST Status: Full Code PD ED PE NORMAL - Vitals Vital signs reviewed: Yes - General General: Alert and oriented X 3, No acute distress - HEENT HEENT: PERRL, EOMI - Neck Neck: Supple, no meningeal sign, No bony TTP - Cardiac Cardiac: RRR, No murmur - Respiratory Respiratory: No respiratory distress, Clear bilaterally - Abdomen Abdomen: Other (Tender left mid abdomen without surgical signs, normal bowel sounds.) - Back Back: No CVA TTP, No spinal TTP - Derm Derm: Normal color, Warm and dry - Extremities Extremities: No edema, No calf tenderness / cord - Neuro Neuro: Alert and oriented X 3, Normal speech Results - Vitals Vitals: Vital Signs - 24 hr 08/01/19 08/01/19 08/01/19 17:49 18:20 18:42 Temperature 36.9 C 38 C H Heart Rate 66 72 58 L Respiratory 16 18 Rate Blood Pressure 151/96 H 176/79 H 154/79 H O2 Saturation 98 96 97 08/01/19 08/01/19 19:41 19:58 Temperature 36.9 C Heart Rate 56 L 62 Respiratory 16 16 Rate Blood Pressure 141/65 H 149/63 H O2 Saturation 98 98 Oxygen O2 Source Room air - Labs Labs: Laboratory Tests 08/01/19 08/01/19 08/01/19 18:30 18:30 18:58 WBC 7.5 RBC 4.69 Hgb 13.8 Hct 41.6 MCV 88.7 MCH 29.4 MCHC 33.2 RDW 12.2 Plt Count 166 MPV 8.8 Neut # (Auto) 5.1 Lymph # (Auto) 1.7 [place] # (Auto) 0.6 Eos # (Auto) 0.1 Baso # (Auto) 0.0 Absolute Nucleated RBC 0.00 Nucleated RBC % 0.0 Sodium 137 Potassium 3.9 Chloride 103 Carbon Dioxide 26 Anion Gap 8.0 BUN 12 Creatinine 0.7 Estimated GFR (MDRD) 85 L Glucose 115 H Calcium 9.1 Total Bilirubin 0.9 AST 19 ALT 13 Alkaline Phosphatase 62 Total Protein 7.6 Albumin 4.2 Globulin 3.4 Albumin/Globulin Ratio 1.2 Lipase 44 Urine Color YELLOW Urine Clarity CLEAR Urine pH 6.0 Ur Specific [place] <=1.005 Urine Protein NEGATIVE Urine Glucose (UA) NEGATIVE Urine Ketones NEGATIVE Urine Occult Blood SMALL H Urine Nitrite NEGATIVE Urine Bilirubin NEGATIVE Urine Urobilinogen 0.2 (NORMAL) Ur Leukocyte Esterase SMALL H Urine RBC 0-5 Urine WBC 6-10 H Ur Squamous Epith Cells FEW Squamous Urine Bacteria None Seen Ur Microscopic Review INDICATED Urine Culture Comments INDICATED - Rads (name of study) CT A/P Radiology: EMP read contemporaneously (Mild acute sigmoid and descending diverticulitis) PD MEDICAL DECISION MAKING - ED course ED course: 63-year-old woman with clinical and radiographic mild diverticulitis which is treated with Cipro and Flagyl. She declined any pain medication. Departure - Departure Disposition: Home, Self Care Clinical Impression: Diverticulitis of gastrointestinal tract Condition: Good Record reviewed to determine appropriate education?: Yes Instructions: ED Diverticulitis Prescriptions: Ciprofloxacin HCl [Cipro] 500 mg PO BID #20 tablet Metronidazole [Flagyl] 500 mg PO TID #30 tablet Comments: Your symptoms and CAT scan today suggest that you have a mild case of diverticulitis. Follow-up with your doctor within the week for recheck. Also after a flare of diverticulitis is generally recommended that you have a follow- up colonoscopy in 6 to 8 weeks, you can get a referral for this from your physician. Do not drink alcohol while on the antibiotics. Return for new or worsening symptoms or if not improving as expected. Discharge Date/Time: 08/01/19 20:11
[2019-08-01 18:39] LABS: BASOPHILS % (AUTO) 0.4 %; EOSINOPHILS # (AUTO) 0.1 10^3/uL (0.0-0.7); EOSINOPHILS % (AUTO) 1.2 %; HGB - HEMOGLOBIN 13.8 g/dL (12.0-16.0); LYMPHOCYTES # (AUTO) 1.7 10^3/uL (1.5-3.5); LYMPHOCYTES % (AUTO) 22.6 %; MEAN CORPUSCULAR HEMOGLOBIN 29.4 pg (27.0-31.0); MEAN CORPUSCULAR HGB CONC 33.2 g/dL (32.0-36.0); MEAN CORPUSCULAR VOLUME 88.7 fL (81.0-99.0); MEAN PLATELET VOLUME 8.8 fL (7.9-10.8); MONOCYTES # (AUTO) 0.6 10^3/uL (0.0-1.0); MONOCYTES % (AUTO) 7.6 %; NEUTROPHILS # (AUTO) 5.1 10^3/uL (1.5-6.6); NEUTROPHILS % (AUTO) 67.8 %; PLT - PLATELET COUNT 166 10^3/uL (130-450); RED BLOOD COUNT 4.69 10^6/uL (4.20-5.40); RED CELL DISTRIBUTION WIDTH 12.2 % (12.0-15.0); WHITE BLOOD COUNT 7.5 x10^3/uL (4.8-10.8)
[2019-08-01 18:53] LABS: ALBUMIN 4.2 g/dL (3.2-5.5); ALBUMIN/GLOBULIN RATIO 1.2 (1.0-2.2); BILIRUBIN,TOTAL 0.9 mg/dL (0.2-1.0); CALCIUM 9.1 mg/dL (8.5-10.3); CREATININE 0.7 mg/dL (0.4-1.0); TOTAL PROTEIN 7.6 g/dL (6.7-8.2)
[2019-08-01] MEDS ORDERED: IOVERSOL 320 100 ML VIAL IVP ONE ×2 (18:53→19:23)
[2019-08-01 19:08] LABS: BILIRUBIN,URINE NEGATIVE (NEGATIVE); GLUCOSE, URINE (UA) NEGATIVE (NEGATIVE); KETONES,URINE (UA) NEGATIVE (NEGATIVE); LEUKOCYTE ESTERASE, URINE SMALL (NEGATIVE); NITRITE,URINE NEGATIVE (NEGATIVE); OCCULT BLOOD,URINE SMALL (NEGATIVE); PROTEIN,URINE NEGATIVE (NEGATIVE); UROBILINOGEN,URINE 0.2 (NORMAL) E.U./dL (NORMAL)
[2019-08-01 19:09] LABS: CLARITY,URINE CLEAR (CLEAR)
[2019-08-01 19:17] LABS: BACTERIA,URINE None Seen /HPF (None Seen); RBC,URINE 0-5 /HPF (0-5); SQUAMOUS EPITHELIAL CELL,UR FEW Squamous (<= Few)
--- NOTE | 2019-08-01 19:45 | CT Report ---
Reason: L side abd pain Procedure Date: 08/01/2019 Accession Number: [id number] / [id number] Procedure: CT - Abdomen/Pelvis W CPT Code: Final Report FULL RESULT: EXAM: CT ABDOMEN AND PELVIS EXAM DATE: 08/01/2019 07:21 PM. CLINICAL HISTORY: L side abd pain. COMPARISONS: None. TECHNIQUE: Routine helical CT imaging was performed through the abdomen and pelvis. IV contrast: OPTI 320 100ML. Enteric contrast: No. Reconstructions: Coronal and sagittal. In accordance with CT protocol optimization, one or more of the following dose reduction techniques were utilized for this exam: automated exposure control, adjustment of mA and/or KV based on patient size, or use of iterative reconstructive technique. FINDINGS: Lung Bases: Unremarkable. Liver: Normal. No masses. Gallbladder/Bile Ducts: Unremarkable. Spleen: Normal. Pancreas: Normal. Adrenal Glands: Normal. Kidneys: 7 cm simple cyst lower pole right renal cortex. Left kidney unremarkable. Peritoneal Cavity/Bowel: Large hiatal hernia with at least half of the stomach in the chest. Unopacified small bowel loops are nondistended. Appendix is normal. There is mild to moderate diverticulosis throughout the colon. In the mid descending colon, there is mild asymmetric posterior pericolonic fat stranding consistent with acute diverticulitis. No abscess. No lymphadenopathy, ascites, or pneumoperitoneum. Pelvic Organs: Small volume bladder. Uterus and adnexa are unremarkable. Vasculature: Minimal aortoiliac atherosclerotic calcification. Bones: Moderate bilateral L5-S1 facet osteoarthritis. Other: Body wall is unremarkable. IMPRESSION: Mild acute mid descending colon diverticulitis. RADIA
[2019-08-01] MEDS ORDERED: metroNIDAZOLE 250 MG TABLET PO STA (19:49)
[2019-08-01] MEDS ORDERED: CIPROFLOXACIN 250 MG TABLET PO STA (19:49)
[2019-08-01 19:59] VITALS: BP 149/63
== END 2019-08-01 20:11 | disposition home or self-care (01) ==
LOC: ED 17:35
DX: K57.32 Diverticulitis of large intestine without perforation or abscess without bleeding (principal)
CPT/HCPCS: 36415; 74177; 80053; 81001; 83690; 85025; 87086; 99284; A9270; Q9967; 81003

== ENCOUNTER 2020-03-14 11:55 | Day surgery (SDC) | payer OTHER ==
[2020-03-14] MEDS ORDERED: LACTATED RINGERS 1,000 ML IV ONE ×2 (12:02→13:55)
--- NOTE | 2020-03-14 12:45 | ANESTHESIA ---
Pre-Anesthesia VS, & Labs - Diagnosis diverticulitis, hiatal hernia - Procedure colonoscopy and EGD Vital Signs: Temp Pulse Resp BP Pulse Ox 36.8 C 78 17 168/101 H 98 03/14/20 12:10 03/14/20 12:10 03/14/20 12:10 03/14/20 12:10 03/14/20 12:10 Height 5 ft 8 in Weight (kg) 124 kg Body Mass Index 43.2 - NPO >8 hours - Is Patient ?: No Home Medications and Allergies Home Medications: Ambulatory Orders Omeprazole 20 mg PO DAILY 02/20/20 polyethylene glycoL 3350 [Miralax] 1 ea PO DAILY 02/20/20 Multivitamin [Theragran] 1 tab PO DAILY 03/09/18 Omeprazole 20 mg PO DAILY 02/20/20 polyethylene glycoL 3350 [Miralax] 1 ea PO DAILY 02/20/20 Allergies/Adverse Reactions: Allergies Allergy/AdvReac Type Severity Reaction Status Date / Time No Known Drug Allergies Allergy Verified 08/01/19 17:49 Anes History & Medical History - Anesthetic History Anesthesia Complications: reports: No previous complications - Medical History Cardiovascular: reports: None Pulmonary: reports: Pneumonia, Sleep apnea, CPAP use (uses every night) Gastrointestinal: reports: GERD (well controlled), Ulcers, Hiatal hernia, Diverticulitis Urinary: reports: None Neuro: reports: None Musculoskeletal: reports: Osteoarthritis Endocrine/Autoimmune: reports: None Blood Disorders: reports: Anemia Skin: reports: None Smoking Status: Never smoker Psychosocial: reports: No issues indicated Other Past Medical History: BMI>40 - Surgical History General: Colonoscopy, EGD Gynecologic: Other (laparoscopy) Exam General: Alert, Oriented x3, Cooperative, No acute distress Dental: WNL Mouth Openin Fingerbreadth Neck Mobility: Normal Mallampati classification: III Mental/Cognitive Status: Alert/Oriented X3, Normal for patient Plan Anesthesia Type: MAC Consent for Procedure(s) Verified and Reviewed: Yes Code Status: Attempt Resuscitation ASA classification: 2-Mild systemic disease Is this case an emergency?: No
[2020-03-14] MEDS ORDERED: LIDO GARGLE 30 ML BOTTLE PO ONE (12:46)
[2020-03-14] MEDS ORDERED: BENZOCAINE/TETRACAINE/BUTAMBEN 20 GM TOP ONE (12:47)
[2020-03-14] MEDS ORDERED: LIDO GARGLE 30 ML BOTTLE ONE (12:49)
[2020-03-14] MEDS ORDERED: PROPOFOL 200 MG/20 ML VIAL IVP ONE (12:56)
[2020-03-14] MEDS ORDERED: MIDAZOLAM 2 MG/2 ML VIAL IVP ONE (12:56)
[2020-03-14] MEDS ORDERED: fentaNYL 100 MCG/2 ML VIAL IVP ONE (12:56)
[2020-03-14] MEDS ORDERED: GLYCOPYRROLATE 1 MG/5 ML VIAL IVP ONE (12:56)
[2020-03-14 14:21] VITALS: BP 132/87
--- NOTE | 2020-03-14 19:52 | ANESTHESIA POST OP EVALUATION ---
Anesthesia Post Eval - Post Anesthesia Eval Vitals: Last Vital Signs Temp 36.2 C L 03/14/20 14:21 Pulse 59 L 03/14/20 14:21 Resp 19 03/14/20 14:21 BP 132/87 H 03/14/20 14:21 Pulse Ox 100 03/14/20 14:21 CV Function Including HR & BP: positive: Stable Pain Control: positive: Satisfactory Nausea & Vomiting: positive: Negative Mental Status: positive: Baseline Respiratory Status: Airway Patent Hydration Status: Satisfactory Anesthesia Complications: positive: None
== END 2020-03-14 11:56 | disposition home or self-care (01) ==
LOC: SDS 11:55
PROVIDERS: ATTEND Surgery
PROC: 0DB48ZX Excision of Esophagogastric Junction, Via Natural or Artificial Opening Endoscopic, Diagnostic (ICD-10-PCS; principal; 2020-03-14 12:45)
DX: Z12.11 Encounter for screening for malignant neoplasm of colon (principal); K21.9 Gastro-esophageal reflux disease without esophagitis; K29.71 Gastritis, unspecified, with bleeding; K29.80 Duodenitis without bleeding; K44.9 Diaphragmatic hernia without obstruction or gangrene; K57.30 Diverticulosis of large intestine without perforation or abscess without bleeding; K59.8 Other specified functional intestinal disorders; K64.8 Other hemorrhoids; G47.30 Sleep apnea, unspecified; D64.9 Anemia, unspecified; E66.9 Obesity, unspecified; Z68.41 Body mass index [BMI] 40.0-44.9, adult; E78.5 Hyperlipidemia, unspecified; Z87.11 Personal history of peptic ulcer disease
CPT/HCPCS: 43239; 45378; A9270; J7120

== ENCOUNTER 2020-09-13 07:13 | Emergency (ER) | payer OTHER ==
[2020-09-13 07:49] LABS: BILIRUBIN,URINE NEGATIVE (NEGATIVE); GLUCOSE, URINE (UA) NEGATIVE (NEGATIVE); KETONES,URINE (UA) NEGATIVE (NEGATIVE); LEUKOCYTE ESTERASE, URINE NEGATIVE (NEGATIVE); NITRITE,URINE NEGATIVE (NEGATIVE); OCCULT BLOOD,URINE TRACE-INTA (NEGATIVE); PROTEIN,URINE NEGATIVE (NEGATIVE); UROBILINOGEN,URINE 0.2 (NORMAL) E.U./dL (NORMAL)
[2020-09-13 07:56] LABS: CLARITY,URINE CLEAR (CLEAR)
[2020-09-13] MEDS ORDERED: IOVERSOL 320 100 ML VIAL IVP ONE ×2 (07:59→08:57)
[2020-09-13 08:00] LABS: ALBUMIN 4.3 g/dL (3.2-5.5); ALBUMIN/GLOBULIN RATIO 1.2 (1.0-2.2); BASOPHILS % (AUTO) 0.4 %; BILIRUBIN,TOTAL 1.2 mg/dL (0.2-1.0); CALCIUM 9.9 mg/dL (8.5-10.3); CREATININE 0.8 mg/dL (0.4-1.0); EOSINOPHILS # (AUTO) 0.1 10^3/uL (0.0-0.7); EOSINOPHILS % (AUTO) 1.3 %; LYMPHOCYTES # (AUTO) 1.3 10^3/uL (1.5-3.5); LYMPHOCYTES % (AUTO) 16.9 %; MEAN CORPUSCULAR HEMOGLOBIN 29.5 pg (27.0-31.0); MEAN CORPUSCULAR HGB CONC 33.7 g/dL (32.0-36.0); MEAN CORPUSCULAR VOLUME 87.6 fL (81.0-99.0); MEAN PLATELET VOLUME 9.1 fL (7.9-10.8); MONOCYTES # (AUTO) 0.5 10^3/uL (0.0-1.0); MONOCYTES % (AUTO) 6.6 %; NEUTROPHILS # (AUTO) 5.8 10^3/uL (1.5-6.6); NEUTROPHILS % (AUTO) 74.5 %; PLT - PLATELET COUNT 177 10^3/uL (130-450); RED BLOOD COUNT 4.75 10^6/uL (4.20-5.40); RED CELL DISTRIBUTION WIDTH 12.4 % (12.0-15.0); WHITE BLOOD COUNT 7.7 x10^3/uL (4.8-10.8)
--- NOTE | 2020-09-13 08:20 | ED Physician Documentation ---
PD HPI ABD PAIN - Stated complaint Stated Complaint: LT SIDE PX - Chief complaint Chief Complaint: Abd Pain - History obtained from History obtained from: Patient - History of Present Illness Timing - onset: Yesterday Timing - duration: Days (1) Timing - details: Gradual onset, Still present Quality: Cramping, Sharp, Pain Location: LLQ Improved by: Laying still Worsened by: Position, Palpation Associated symptoms: Fever. No: Nausea, Vomiting, Diarrhea, Constipation Similar symptoms before: Diagnosis (diverticulitis) Recently seen: Not recently seen - Additional information Additional information: Previously well 64-year-old female with a history of diverticulitis has developed cramping pain in the left lower quadrant that started out yesterday as a discomfort and through the night has become a stabbing sharp pain similar to what she is had previously with diverticulitis.She has had some low-grade fever she denies any vomiting diarrhea or constipation.She indicates that she has otherwise been feeling well prior to this. Review of Systems Constitutional: reports: Fever, Chills Eyes: denies: Decreased vision Ears: denies: Ear pain Nose: denies: Congestion Throat: denies: Sore throat Cardiac: denies: Chest pain / pressure, Palpitations Respiratory: denies: Dyspnea, Cough GI: reports: Abdominal Pain. 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: None : None HEENT: None Psych: None Musculoskeletal: Osteoarthritis Derm: None - Past Surgical History Past Surgical History: Yes General: Colonoscopy, EGD /SAMPLE TAILOR: Other - Present Medications Home Medications: Ambulatory Orders Medication Instructions Recorded Confirmed Multivitamin [Theragran] 1 tab PO DAILY 03/09/18 03/14/20 RX: Omeprazole 20 mg PO DAILY 02/20/20 03/14/20 Acetaminophen [Tylenol] 650 mg PO Q6H PRN 09/13/20 09/13/20 Amox/Clav 875/125 [Augmentin] 1 each PO Q12H #14 tab 09/13/20 - Allergies Allergies/Adverse Reactions: Allergies Allergy/AdvReac Type Severity Reaction Status Date / Time No Known Drug Allergies Allergy Verified 09/13/20 07:23 - Social History Does the pt smoke?: No Smoking Status: Never smoker Does the pt drink ETOH?: No Does the pt have substance abuse?: No - Immunizations Immunizations are current?: Yes - POLST Patient has POLST: No POLST Status: Full Code PD ED PE NORMAL - Vitals Vital signs reviewed: Yes (hypertensive ) - General General: Alert and oriented X 3, No acute distress, Well developed/nourished - HEENT HEENT: Atraumatic, PERRL, EOMI - Neck Neck: Supple, no meningeal sign, No bony TTP - Cardiac Cardiac: RRR, No murmur - Respiratory Respiratory: No respiratory distress, Clear bilaterally - Abdomen Abdomen: Normal bowel sounds, Soft, Non distended, No organomegaly, Other (LLQ tenderness to palpation with pain referred to LLQ with palpation elsewhere. 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, No motor deficit, No sensory deficit, Normal speech Eye Opening: Spontaneous Motor: Obeys Commands Verbal: Oriented GCS Score: 15 - Psych Psych: Normal mood, Normal affect Results - Vitals Vitals: Vital Signs - 24 hr 09/13/20 09/13/20 07:21 07:23 Temperature 99.2 C H Heart Rate 73 67 Respiratory 18 18 Rate Blood Pressure 140/100 H 145/70 H O2 Saturation 99 98 Oxygen O2 Source Room air - Labs Labs: Laboratory Tests 09/13/20 09/13/20 09/13/20 07:30 07:42 07:42 WBC 7.7 RBC 4.75 Hgb 14.0 Hct 41.6 MCV 87.6 MCH 29.5 MCHC 33.7 RDW 12.4 Plt Count 177 MPV 9.1 Neut # (Auto) 5.8 Lymph # (Auto) 1.3 L [place] # (Auto) 0.5 Eos # (Auto) 0.1 Baso # (Auto) 0.0 Absolute Nucleated RBC 0.00 Nucleated RBC % 0.0 Sodium 139 Potassium 3.8 Chloride 101 Carbon Dioxide 24 Anion Gap 14.0 H BUN 15 Creatinine 0.8 Estimated GFR (MDRD) 72 L Glucose 109 H Calcium 9.9 Total Bilirubin 1.2 H AST 22 ALT 14 Alkaline Phosphatase 61 Total Protein 8.0 Albumin 4.3 Globulin 3.7 Albumin/Globulin Ratio 1.2 Lipase 40 Urine Color YELLOW Urine Clarity CLEAR Urine pH 7.0 Ur Specific [place] 1.015 Urine Protein NEGATIVE Urine Glucose (UA) NEGATIVE Urine Ketones NEGATIVE Urine Occult Blood TRACE-INTA Urine Nitrite NEGATIVE Urine Bilirubin NEGATIVE Urine Urobilinogen 0.2 (NORMAL) Ur Leukocyte Esterase NEGATIVE Ur Microscopic Review NOT INDICATED Urine Culture Comments NOT INDICATED PD MEDICAL DECISION MAKING - ED course Complexity details: reviewed old records, reviewed results, re-evaluated patient, considered differential, d/w patient ED course: CT ab/pel with: Impression: Inflammatory stranding involving the pericolonic fat at the junction of the descending and sigmoid colon in the setting of diverticulosis. This probably represents acute diverticulitis although technically indeterminate and recommend clinical correlation to exclude other infectious or inflammatory colitis. Recommend clinical follow-up to exclude early neoplasm. Normal appendix moderate hiatal hernia additional chronic and incidental findings as above. Departure - Departure Disposition: 01 Home, Self Care Clinical Impression: Diverticulitis of gastrointestinal tract Condition: Stable Instructions: ED Diverticulitis Follow-Up: VERA LU ARNP [Primary Care Provider] - Prescriptions: Amox/Clav 875/125 [Augmentin] 1 each PO Q12H #14 tab
--- NOTE | 2020-09-13 09:07 | CT Report ---
PROCEDURE: Abdomen/Pelvis W INDICATIONS: LLQ pain CONTRAST: IV CONTRAST: Optiray 320 ml: 100 PO CONTRAST: *NO PO CONTRAST TECHNIQUE: After the administration of IV contrast, 5 mm thick sections acquired from the diaphragms to the symp hysis. 5 mm thick coronal and sagittal reformats were acquired. For radiation dose reduction, the f ollowing was used: automated exposure control, adjustment of mA and/or kV according to patient size. COMPARISON: None. FINDINGS: Image quality: Excellent. ABDOMEN: Lung bases: Lung bases are clear. Heart size is normal. Solid organs: Liver and spleen are normal in size and enhancement. Hepatic foci statistically repres enting cysts although technically indeterminate due to small size. Gallbladder negative. Biliary sys tem is non dilated. Pancreas enhances normally. No adrenal nodules. Kidneys demonstrate normal siz e and enhancement, without hydronephrosis. Large simple appearing right renal cyst at the inferior p ole. Peritoneum and bowel: Moderate hiatal hernia. There is pericolonic inflammatory fat stranding at the junction of the descending and sigmoid colon. There is mild colonic mural thickening in this area. No abscess seen. No free fluid or air. Normal appendix. Colonic diverticulosis incidentally noted w ithout evidence of acute inflammation. Nodes and vessels: No retroperitoneal or mesenteric adenopathy by size criteria. Aorta and inferior vena cava are normal in size. Miscellaneous: No ventral hernias. Nonspecific metallic or highly calcified densities seen in the u pper abdomen PELVIS: Genitourinary: Bladder wall thickness is normal. Miscellaneous: No inguinal hernias or adenopathy. Bones: No suspicious bony lesions. Diffuse spondylitic changes and facet arthropathy. No vertebral body compression fractures. IMPRESSION: Inflammatory stranding involving the pericolonic fat at the junction of the descending and sigmoid co radha, in the setting of diverticulosis. This probably represents acute diverticulitis although technic ally indeterminate and recommend clinical correlation to exclude other infectious or inflammatory col itis. Recommend clinical follow-up to exclude early neoplasm. Normal appendix Moderate hiatal hernia Additional chronic and incidental findings as above. Reviewed by: Randy Kaba MD on 09/13/2020 9:05 AM PST Approved by: Randy Kaba MD on 09/13/2020 9:05 AM PST Station ID: [id number]
[2020-09-13 09:29] VITALS: BP 132/63
== END 2020-09-13 09:29 | disposition home or self-care (01) ==
LOC: ED 07:13
DX: K57.32 Diverticulitis of large intestine without perforation or abscess without bleeding (principal); K44.9 Diaphragmatic hernia without obstruction or gangrene
CPT/HCPCS: 36415; 74177; 80053; 81003; 83690; 85025; 99284; Q9967; 81001; 87086